=== PATIENT | female | born 1965 | race Caucasian/White ===

== ENCOUNTER 2019-03-04 15:06 | Emergency (ER) | payer MEDICAID ==
[~2019-03-04] VITALS: Ht 167.6 cm; Wt 54.4 kg
[2019-03-04 15:13] VITALS: BP_SYST 197
--- NOTE | 2019-03-04 17:10 | NUR ---
Patient to ER bed 07 to gown for evaluation. Side rails up.
--- NOTE | 2019-03-04 17:25 | NUR ---
Pt brought by self, pt states she was in the middle of a dog fight and trying to separate dogs, pt has a dogbite on R middle finger, afebrile, no bleeding noted, skin pink and warm , cap refill <3.
--- NOTE | 2019-03-04 17:45 | NUR ---
Dr Muhammad at bedside examining patient
[2019-03-04] MEDS ORDERED: DIPH-TET-PERTUS Vaccine 0.5 ML VIAL (ADACEL) I.M. ONE (18:15)
[2019-03-04] MEDS ORDERED: CLINDAMYCIN HCL 150 MG CAPSULE PO ONE (18:15)
[2019-03-04 18:41] VITALS: BP_SYST 177
--- NOTE | 2019-03-04 18:47 | NUR ---
Patient given written and verbal discharge instructions and verbalizes understanding. ER MD discussed with patient the results and treatment provided. Patient in stable condition. ID arm band removed. Rx of Clindamycin and Motrin given. Patient educated on pain management and to follow up with PMD. Pain Scale 0/10 . Opportunity for questions provided and answered. Medication side effect fact sheet provided.
== END 2019-03-04 18:41 | disposition home or self-care (01) ==
LOC: SED 15:06
DX: S61.232A Puncture wound without foreign body of right middle finger without damage to nail, initial encounter (principal); J02.9 Acute pharyngitis, unspecified; R03.0 Elevated blood-pressure reading, without diagnosis of hypertension; Z88.0 Allergy status to penicillin; Z88.1 Allergy status to other antibiotic agents; W54.0XXA Bitten by dog, initial encounter; Y93.89 Activity, other specified; Y92.89 Other specified places as the place of occurrence of the external cause; Y99.8 Other external cause status
CPT/HCPCS: 90715; 99283

== ENCOUNTER 2019-07-04 10:30 | Emergency (ER) | payer MEDICAID ==
[~2019-07-04] VITALS: Ht 167.6 cm; Wt 54.4 kg
[2019-07-04 10:30] VITALS: BP_SYST 161
[2019-07-04] MEDS ORDERED: NACL 0.9% 1,000 ML IV ONE (11:23)
[2019-07-04] MEDS ORDERED: MORPHINE 4 MG/ML INJ. SYRINGE IVP ONE (11:30)
[2019-07-04 11:33] LABS: BASOPHILS # (AUTO) 0.1 K/uL (0.0-0.2); BASOPHILS % (AUTO) 1.3 % (0.0-2.0); EOSINOPHILS # (AUTO) 0.1 K/uL (0.0-0.4); EOSINOPHILS % (AUTO) 1.7 % (0.0-4.0); HEMATOCRIT 39.3 % (36-48); LYMPHOCYTES # (AUTO) 1.8 K/uL (1.0-5.5); LYMPHOCYTES % (AUTO) 47.9 % (20.5-51.5); MEAN CORPUSCULAR HEMOGLOBIN 30 pg (27-31); MEAN CORPUSCULAR HGB CONC 33 % (32-36); MEAN CORPUSCULAR VOLUME 92 fL (79.0-98.0); MONOCYTES # (AUTO) 0.2 K/uL (0.0-1.0); MONOCYTES % (AUTO) 5.8 % (1.7-9.3); NEUTROPHILS # (AUTO) 1.6 K/uL (1.8-7.7); NEUTROPHILS % (AUTO) 43.3 % (40.0-70.0); PLATELET COUNT (AUTO) 215 K/uL (130-430); RED BLOOD CELL COUNT(AUTO) 4.29 MIL/uL (4.2-6.2); RED CELL DISTRIBUTION WIDTH 13.2 % (9.0-15.0); WHITE BLOOD COUNT (AUTO) 3.8 K/uL (4.8-10.8)
[2019-07-04 11:37] LABS: CALCIUM 8.8 mg/dL (8.4-11.0); CREATININE 0.66 mg/dL (0.55-1.30); POTASSIUM 3.7 mmol/L (3.5-5.1)
[2019-07-04] MEDS ORDERED: LEVOFLOXACIN 500 MG/D5W 100 ML IV ONE (11:45)
[2019-07-04 11:52] LABS: ALBUMIN 4.1 g/dL (3.4-4.8); TOTAL BILIRUBIN 0.6 mg/dL (0.0-1.0)
[2019-07-04 12:05] LABS: PROTHROMBIN TIME 10.5 SECS (9.5-12.5)
[2019-07-04 13:16] VITALS: BP_SYST 149
== END 2019-07-04 13:00 | disposition short-term general hospital (02) ==
LOC: SED 10:30
DX: S51.811A Laceration without foreign body of right forearm, initial encounter (principal); D89.89 Other specified disorders involving the immune mechanism, not elsewhere classified; Z88.0 Allergy status to penicillin; Z88.1 Allergy status to other antibiotic agents; W26.8XXA Contact with other sharp object(s), not elsewhere classified, initial encounter; Y93.G1 Activity, food preparation and clean up; Y92.89 Other specified places as the place of occurrence of the external cause; Y99.8 Other external cause status
CPT/HCPCS: 36415; 71045; 73090; 80053; 82150; 82550; 83605; 83690; 85025; 85610; 85730; 87040; 93005; 96365; 96375; 99285; J1956; J2270; J7030

== ENCOUNTER 2020-02-09 11:06 | Emergency (ER) | payer MEDICAID ==
[~2020-02-09] VITALS: Ht 167.6 cm; Wt 53.5 kg
[2020-02-09 11:18] VITALS: BP_SYST 145
[2020-02-09] MEDS: cloNIDine HCL 0.1 MG TABLET PO ONE (12:04)
[2020-02-09 13:25] VITALS: BP_SYST 127
== END 2020-02-09 13:25 | disposition home or self-care (01) ==
LOC: SED 11:06
DX: I16.0 Hypertensive urgency (principal); Z88.0 Allergy status to penicillin; Z88.1 Allergy status to other antibiotic agents
CPT/HCPCS: 93005; 99283